=== PATIENT | male | born 1960 | race Two or more races ===

== ENCOUNTER 2025-01-19 07:39 | Emergency (ER) | payer OTHER ==
[~2025-01-19] VITALS: Ht 165.1 cm; Wt 72.6 kg
[2025-01-19] MEDS ORDERED: ORPHENADRINE CITRATE 30 MG/ML AMPUL ONE (08:12)
[2025-01-19] MEDS ORDERED: KETOROLAC TROMETHAMINE 60 MG VIAL IM ONE ×2 (08:13→08:15)
[2025-01-19] MEDS ORDERED: ORPHENADRINE CITRATE 30 MG/ML AMPUL IM ONE (08:15)
== END 2025-01-19 09:22 | disposition home or self-care (01) ==
LOC: ER 07:40
DX: M54.89 Other dorsalgia (principal); M51.369 Other intervertebral disc degeneration, lumbar region without mention of lumbar back pain or lower extremity pain; Z91.013 Allergy to seafood

== ENCOUNTER 2025-05-10 13:54 | Emergency (ER) | payer OTHER ==
[~2025-05-10] VITALS: Ht 167.6 cm; Wt 77.1 kg
[2025-05-10 14:40] VITALS: BP 153/81; O2SAT 99
[2025-05-10] MEDS ORDERED: BARIUM SULFATE 450 ML ORAL.SUSP PO ONE (16:45)
[2025-05-10 17:03] LABS: BASO % 1.0 % (0.1-1.2); EOS # 0.15 (0.04-0.54); EOS % 1.9 % (0.7-7.0); LYMPH # 2.43 (1.18-3.74); LYMPH % 30.4 % (19.3-53.1); MEAN PLATELET VOLUME 8.20 fl (9.4-12.4); MONO # 0.75 (0.24-0.82); MONO % 9.4 % (4.7-12.5); NEUT # 4.56 (1.56-6.13); NEUT % 56.9 % (34.0-71.1); RED CELL DISTRIBUTION WIDTH 11.9 % (11.6-14.4)
[2025-05-10 17:29] LABS: ALT/SGPT 24.0 U/L (12-78); AST/SGOT 21.0 U/L (15-37); BILIRUBIN TOTAL 0.74 mg/dL (0.3-1.2); BUN CREA RATIO 8.0 (7.0-25.0); CREATININE SERUM 1.09 mg/dL (0.70-1.30); GFR 67.89; GLOBULINA 3.9 G/DL (2.4-3.5); GLUCOSE FASTING 89.0 mg/dL (65-100); OSMOLALITY SERUM 283.0 MOSM/KG (275-295)
[2025-05-10] MEDS ORDERED: MINERAL OIL 30 ML BLIST.PACK PO ONE (21:30)
[2025-05-10] MEDS ORDERED: MAGNESIUM HYDROXIDE 400 MG/5 ML ML PO ONE (21:30)
[2025-05-10] MEDS ORDERED: LACTULOSE 20 G/30 ML BLIST.PACK PO ONE (21:30)
== END 2025-05-10 21:39 | disposition home or self-care (01) ==
LOC: ER 13:54
PROVIDERS: General Practice
DX: K59.00 Constipation, unspecified (principal); Z91.013 Allergy to seafood
CPT/HCPCS: 36415; 74177; Q9965